=== PATIENT | female | born 1945 | race Caucasian/White ===

== ENCOUNTER → 2016-10-31 | Outpatient (CLI) | payer MEDICARE ==
[~2016-10-31] MED LIST: ACET-929 PO; ACET650T67 PO; ACYC200C66 PO; ALPH1INJ3 IV; BIOT1CAP2 PO; CALCTAB80 PO; CITA20TA4 PO; GABA100C4 PO; HYDR25TA5 PO; LEVO88TA2 PO; LOVA20TA PO; MULT-65 PO; RANI150C PO
--- NOTE | 2016-11-05 11:42 | RSPPFT ---
DATE OF PROCEDURE: 10/31/16 COMMENTS: Spirometry with FEV1 of 1.9, FVC of 2.6 and FEV1/FVC ratio at 77%. There is no significant response to acutely inhaled bronchodilator. Slow vital capacity is 64% of predicted. TLC is 81%. Diffusion capacity is 26% of predicted and normal when related to alveolar volume. IMPRESSION: 1. No gross airways obstruction. 2. No airways restriction. 3. Reduced diffusion capacity and normal when related to alveolar volume. 4. Non-significant response to acutely inhaled bronchodilator.
== END ==
LOC: HRSP 09:54
PROVIDERS: ATTEND Internal Medicine Sleep Medicine
DX: R06.89 Other abnormalities of breathing (principal)
CPT/HCPCS: 94060; 94726; 94729